=== PATIENT | female | born 1985 | race African-American/Black ===

== ENCOUNTER 2017-04-28 11:21 | Emergency (ER) | payer OTHER ==
[~2017-04-28] VITALS: Ht 170.2 cm; Wt 145.0 kg
[~2017-04-28 11:21] MED LIST: ARIP20TA2; CITA20TA19; TRAZADONE
[2017-04-28] MEDS ORDERED: IBUPROFEN 800MG TABLET PO ONE (16:00)
[2017-04-28 16:04] VITALS: BP 123/77
== END 2017-04-28 16:05 | disposition home or self-care (01) ==
LOC: ER 12:09
DX: S93.402A Sprain of unspecified ligament of left ankle, initial encounter (principal); S80.812A Abrasion, left lower leg, initial encounter; F12.10 Cannabis abuse, uncomplicated; X58.XXXA Exposure to other specified factors, initial encounter; Y93.89 Activity, other specified; Y92.89 Other specified places as the place of occurrence of the external cause; Y99.8 Other external cause status
CPT/HCPCS: 99282; Z7610